=== PATIENT | female | born 1965 | race Two or more races ===

== ENCOUNTER 2022-11-15 07:40 | Outpatient (CLI) | payer OTHER ==
[~2022-11-15 07:40] MED LIST: DIOVAN40 MG PO; LASIX20 MG PO; LYRICA50 MG PO; PLAVIX75 MG PO; [UNRECOGNIZED DRUG - OTHER] PO
== END 2022-11-15 07:42 | disposition home or self-care (01) ==
LOC: NUCLEAR 07:40
PROVIDERS: ATTEND Internal Medicine
DX: I25.10 Atherosclerotic heart disease of native coronary artery without angina pectoris (principal)
CPT/HCPCS: 78452; 93017; A9500; J0153